=== PATIENT | male | born 1980 | race Two or more races ===

== ENCOUNTER 2022-06-11 13:19 | Emergency (ER) | payer SELFPAY ==
[~2022-06-11] VITALS: Ht 182.9 cm; Wt 64.2 kg
[2022-06-11 15:18] VITALS: BP 111/79
== END 2022-06-11 16:05 | disposition home or self-care (01) ==
LOC: ER 13:19
DX: S61.011A Laceration without foreign body of right thumb without damage to nail, initial encounter (principal); W26.9XXA Contact with unspecified sharp object(s), initial encounter; Y93.89 Activity, other specified; Y92.89 Other specified places as the place of occurrence of the external cause; Y99.8 Other external cause status
CPT/HCPCS: 12002